=== PATIENT | male | born 1980 | race African-American/Black ===

== ENCOUNTER 2021-11-14 21:23 | Emergency (ER) | payer MEDICAID ==
[~2021-11-14] VITALS: Ht 177.8 cm; Wt 93.0 kg
[2021-11-14 21:33] VITALS: BP 154/73
--- NOTE | 2021-11-14 21:36 | NUR ---
TO LOBBY A/W BED AMBULATORY
[2021-11-15] MEDS ORDERED: APIXABAN 2.5 MG TAB PO ONE (00:15)
--- NOTE | 2021-11-15 01:31 | NUR ---
Patient discharged with v/s stable. Written and verbal after care instructions given and explained. Patient verbalized understanding. Ambulatory with steady gait. All questions addressed prior to discharge. Advised to follow up with PMD.
== END 2021-11-15 01:31 | disposition home or self-care (01) ==
LOC: MED 21:23
DX: I82.442 Acute embolism and thrombosis of left tibial vein (principal)
CPT/HCPCS: 93971; 99284; Q0092